=== PATIENT | female | born 1980 ===

== ENCOUNTER → 2017-07-30 | Outpatient (CLI) | payer OTHER ==
[~2017-07-30] VITALS: Ht 152.4 cm; Wt 89.8 kg
[~2017-07-30] MED LIST: CLARITIN-D1 TAB.SR1 PO; CLARITIN10 MG; FLONASE16 GM; ORPH100T PO; VOLTAREM 50 MG PO
== END | disposition home or self-care (01) ==
LOC: PPHC 17:00
DX: R50.9 Fever, unspecified (principal); R10.2 Pelvic and perineal pain; J06.9 Acute upper respiratory infection, unspecified

== ENCOUNTER → 2017-08-03 | Outpatient (CLI) | payer OTHER ==
[~2017-08-03] VITALS: Ht 152.4 cm; Wt 89.8 kg
[~2017-08-03] MED LIST changes: +BENADRYL50 MG
== END | disposition home or self-care (01) ==
LOC: PPHC 08:48
DX: Z01.89 Encounter for other specified special examinations (principal)